=== PATIENT | female | born 1995 | race Two or more races ===

== ENCOUNTER 2020-02-08 08:00 | Outpatient (CLI) | payer OTHER ==
[2020-02-08 22:27] LABS: CANDIDA GROUP DNA NEGATIVE (NEGATIVE); CANDIDA KRUSEI DNA NEGATIVE (NEGATIVE); TRICHOMONAS VAGINALIS DNA NEGATIVE (NEGATIVE)
== END 2020-02-08 23:59 | disposition home or self-care (01) ==
LOC: LAB.R 08:00
PROVIDERS: ATTEND Advanced Practice Midwife
DX: Z01.419 Encounter for gynecological examination (general) (routine) without abnormal findings (principal)
CPT/HCPCS: 87661; 87801

== ENCOUNTER 2021-04-21 15:16 | Outpatient (CLI) | payer OTHER ==
--- NOTE | 2021-04-21 15:56 | XRAY Report ---
PROCEDURE: Shoulder 3 View RT INDICATIONS: RT SHOULDER PX TECHNIQUE: 3 views of the shoulder were acquired. COMPARISON: None. FINDINGS: Bones: No fractures or dislocations. No suspicious bony lesions. Visualized ribs appear intact. Soft tissues: No suspicious soft tissue calcifications. IMPRESSION: No acute fracture. No osseous lesion. If symptoms and/or clinical suspicion for patholog y continue, further assessment with repeat plain films, or advanced imaging (e.g., CT, MRI, or bone s can) is recommended for further assessment. Reviewed by: Asad Nino MD on 04/21/2021 3:55 PM PDT Approved by: Asad Nino MD on 04/21/2021 3:55 PM PDT Station ID: [id number]
== END 2021-04-21 15:17 | disposition home or self-care (01) ==
LOC: DI.S 15:16
PROVIDERS: ATTEND Nurse Practitioner Family
DX: M25.511 Pain in right shoulder (principal)

== ENCOUNTER 2021-06-15 13:49 | Outpatient (CLI) | payer OTHER | END 2021-06-15 13:50 | disposition home or self-care (01) | LOC: COV 13:49 | PROVIDERS: ATTEND Family Medicine | DX: R50.9 Fever, unspecified (principal); R53.83 Other fatigue; R07.0 Pain in throat; J34.89 Other specified disorders of nose and nasal sinuses; Z20.822 Contact with and (suspected) exposure to COVID-19 ==